=== PATIENT | female | born 1985 | race Caucasian/White ===

== ENCOUNTER → 2021-05-13 13:58 | Outpatient (CLI) | payer OTHER, SELFPAY ==
[2021-05-13 15:52] LABS: Hematocrit 34.3 % (36-46); Hemoglobin 11.9 g/dL (12.0-16.0)
[2021-05-13 16:51] LABS: GTT (PREG) 1 Hour PP 50gm Dose 134 mg/dL (76-139)
== END ==
PROVIDERS: Referring Provider Obstetrics & Gynecology; Visit Provider Obstetrics & Gynecology
DX: Z34.90 Encounter for supervision of normal pregnancy, unspecified, unspecified trimester
CPT/HCPCS: 36415; 82950; 85014; 85018

== ENCOUNTER 2021-05-27 11:26 | Outpatient (CLI) | payer OTHER, SELFPAY ==
--- NOTE | 2021-05-27 12:26 | PM.OBTRLD ---
Visit Information Visit Information Date of evaluation: 06/24/21 Primary OB Provider: Angeli Miranda Reason for Evaluation: Yes non-stress test Comments/Additional reasons for admission: This patient is a 35yo P1 @34+0 with an uncomplicated , sent for NST after FHR in the 190s in clinic in the setting of copious movement. Patient had no other symptoms or concerns at clinic visit, otherwise doing well. Vital Signs Vital Signs: 119/73, afebrile, HR 93 PFSH Medical History Preeclampsia (~2019) Ruptured ovarian cyst (~2006) Surgical History [place] teeth extracted Family History Mother No problems noted. Father Hypertension Stroke Hyperlipidemia Grandmother Ovarian cancer Grandfather Prostate cancer Grandmother Family history unknown Grandfather Family history unknown Social History marital status: number of children: 1 household members: spouse, family (Living with parents while looking for a house. ) and children lives independently: No caregiver/support person: No pets and animals: Yes (2 dogs: safe.) education level: master's degree (Cultural Resources/ Environmental Resources) occupational status: employed (Works from home.) current occupational exposures/hazards: No patti/adventism: Yazidi special patti needs: No seatbelt use: always do you feel safe at home: Yes Smoking Status: Never smoker second hand exposure: No alcohol intake: former substance use type: does not use during the past year weight has: remained stable well-balanced diet: daily or most days daily servings fruits/ve or more times/day caffeine: Yes (1 cup black tea daily.) Type(s) of exercise: walking frequency: daily Evaluation Evaluation Baseline heart rate: 140 Variability: Moderate (11-25) monitor accelerations: Present Monitor Decelerations: Absent Category of Tracing: Reactive Status: Category l Diagnosis, Plan/Disposition Plan/Disposition Plan: Home with routine precautions. OB Disposition: home
== END 2021-05-27 12:32 | disposition home or self-care (01) ==
LOC: OB 05-28 14:00
PROVIDERS: Referring Provider Obstetrics & Gynecology; Visit Provider Obstetrics & Gynecology
DX: Z34.83 Encounter for supervision of other normal pregnancy, third trimester (principal); Z3A.34 34 weeks gestation of pregnancy
CPT/HCPCS: 59025; G0378; G0379

== ENCOUNTER 2021-07-10 12:44 | Outpatient (CLI) | payer OTHER, SELFPAY ==
--- NOTE | 2021-07-10 13:35 | PM.OBTRLD ---
Visit Information Visit Information Date of evaluation: 07/10/21 Primary OB Provider: Angeli Miranda Reason for Evaluation: Yes non-stress test Comments/Additional reasons for admission: This patient is a 35yo @40+2 presenting for NST for postdates. Vital Signs Vital Signs: 126/75 PFSH Medical History Preeclampsia (~2020) Ruptured ovarian cyst (~2006) Surgical History [place] teeth extracted Family History Mother No problems noted. Father Hypertension Stroke Hyperlipidemia Grandmother Ovarian cancer Grandfather Prostate cancer Grandmother Family history unknown Grandfather Family history unknown Social History marital status: number of children: 1 household members: spouse, family (Living with parents while looking for a house. ) and children lives independently: No caregiver/support person: No pets and animals: Yes (2 dogs: safe.) education level: master's degree (Cultural Resources/ Environmental Resources) occupational status: employed (Works from home.) current occupational exposures/hazards: No patti/samaritan: Taoist special patti needs: No seatbelt use: always do you feel safe at home: Yes Smoking Status: Never smoker second hand exposure: No alcohol intake: former substance use type: does not use during the past year weight has: remained stable well-balanced diet: daily or most days daily servings fruits/ve or more times/day caffeine: Yes (1 cup black tea daily.) Type(s) of exercise: walking frequency: daily Evaluation Evaluation Baseline heart rate: 135 Variability: Average (6-10) monitor accelerations: Present Monitor Decelerations: Absent Contraction Frequency (minutes): 10 Category of Tracing: Reactive Status: Category l Diagnosis, Plan/Disposition Plan/Disposition Plan: Home with routine precautions. OB Disposition: home
== END 2021-07-10 13:30 | disposition home or self-care (01) ==
LOC: LABOR 12:59 → OB 07-11 15:42
PROVIDERS: PCP Obstetrics & Gynecology; Referring Provider Obstetrics & Gynecology; Visit Provider Obstetrics & Gynecology
DX: O48.0 Post-term pregnancy (principal); Z3A.40 40 weeks gestation of pregnancy
CPT/HCPCS: 59025; G0378; G0379

== ENCOUNTER 2021-07-15 09:09 | Outpatient (CLI) | payer OTHER, SELFPAY ==
--- NOTE | 2021-07-15 17:58 | P.TNLD_ITS ---
Visit Information Visit Information Date of evaluation: 07/15/21 Primary OB Provider: Angeli Miranda Reason for Evaluation: Yes non-stress test Comments/Additional reasons for admission: Patient presents at 41+0 for postdates NST. Vital Signs Vital Signs: 130/70, HR 98 PFSH Medical History Preeclampsia (~2019) Ruptured ovarian cyst (~2006) Surgical History [place] teeth extracted Family History Mother No problems noted. Father Hypertension Stroke Hyperlipidemia Grandmother Ovarian cancer Grandfather Prostate cancer Grandmother Family history unknown Grandfather Family history unknown Social History marital status: number of children: 1 household members: spouse, family (Living with parents while looking for a house. ) and children lives independently: No caregiver/support person: No pets and animals: Yes (2 dogs: safe.) education level: master's degree (Cultural Resources/ Environmental Resources) occupational status: employed (Works from home.) current occupational exposures/hazards: No patti/religious: Gnosticism special patti needs: No seatbelt use: always do you feel safe at home: Yes Smoking Status: Never smoker second hand exposure: No alcohol intake: former substance use type: does not use during the past year weight has: remained stable well-balanced diet: daily or most days daily servings fruits/ve or more times/day caffeine: Yes (1 cup black tea daily.) Type(s) of exercise: walking frequency: daily Evaluation Evaluation Baseline heart rate: 135 Variability: Moderate (11-25) monitor accelerations: Present Monitor Decelerations: Absent Category of Tracing: Reactive Status: Category l Diagnosis, Plan/Disposition Plan/Disposition Plan: home with labor precautions OB Disposition: home
== END 2021-07-15 09:55 | disposition home or self-care (01) ==
LOC: OB 07-17 07:47
PROVIDERS: Referring Provider Obstetrics & Gynecology; Visit Provider Obstetrics & Gynecology
DX: O48.0 Post-term pregnancy (principal); Z3A.41 41 weeks gestation of pregnancy
CPT/HCPCS: 59025; G0378; G0379

== ENCOUNTER 2021-07-16 07:23 | Inpatient (IN) | payer OTHER, SELFPAY ==
--- NOTE | 2021-07-16 07:55 | PM.OBHP.1 ---
OB HPI Date/Time Date of admission: 07/16/21 Date Patient Seen: 07/16/21 Time Patient Seen: 07:55 History of Present Condition Chief complaint: : 3 Para: 1 Estimated Date of Delivery: 07/08/21 Estimated Gestational Age (weeks): 41+1 Narrative: Irma Pappas is a 35 year old CLOTILDE 07/08/2021 admitted in advanced active phase labor ai 41=1 weeks EGA. Hx of PEC w/ first delivery with prolonged second stage, vacuum extraction and episiotomy. BP's stable w/ this and now in labor. GBS is +. BOWI. History of Present care: good care Dating criteria: LMP confirmed by 2nd trimester US Ultrasounds: normal 1st trimester US and normal mid trimester US Obstetrical complications: none Medical complications: none Preadmission Labs Blood type: A (+) positive -: Antibody screen: negative, GBS status: positive, HBsAG: negative, HIV: negative and RPR/VDLR: negative -: Chlamydia screen: not detected and Gonorrhea screen: not detected -: Rubella: immune and Varicella: immune HCT: 34.3 HCAB: negative PAP: Normal 1 hr GTT: 136 Prior (ies) History: See HPI Evaluation Evaluation Baseline heart rate: 150 Variability: Moderate (11-25) monitor accelerations: Present Monitor Decelerations: Absent Contraction Frequency (minutes): 5 Uterine Contraction Intensity: Moderate Category of Tracing: Reactive Status: Category l Dilation (cm): 10 Effacement (%): 100 Dilation: >/=5 cm Effacement: >/=80% station: +2 Position of cervix: anterior Consistency: soft Antoine score: 13 PFSH Medical History Preeclampsia (~2020) Ruptured ovarian cyst (~2006) Surgical History [place] teeth extracted Family History Mother No problems noted. Father Hypertension Stroke Hyperlipidemia Grandmother Ovarian cancer Grandfather Prostate cancer Grandmother Family history unknown Grandfather Family history unknown Social History marital status: number of children: 1 household members: spouse, family (Living with parents while looking for a house. ) and children lives independently: No caregiver/support person: No pets and animals: Yes (2 dogs: safe.) education level: master's degree (Cultural Resources/ Environmental Resources) occupational status: employed (Works from home.) current occupational exposures/hazards: No ptati/methodist: Orthodox special patti needs: No seatbelt use: always do you feel safe at home: Yes Smoking Status: Never smoker second hand exposure: No alcohol intake: former substance use type: does not use during the past year weight has: remained stable well-balanced diet: daily or most days daily servings fruits/ve or more times/day caffeine: Yes (1 cup black tea daily.) Type(s) of exercise: walking frequency: daily Meds Home Medications and Allergies Home Medications Medication Instructions Recorded Confirmed Type aspirin 81 mg capsule 81 mg PO DAILY 04/04/21 07/15/21 History calcium carbonate 500 mg-vitamin 1 tab PO DAILY 04/04/21 07/15/21 History D3 10 mcg (400 unit) tablet (Calcium 500 + D) omega 1-chk-wrg-fish oil 1,600 5 ml PO DAILY 04/04/21 07/15/21 History mg-500 mg-800 mg/5 mL oral liquid (Fish Oil) prenat.vits,melissa,juv-aycr-klawi 1 tab PO DAILY 04/04/21 07/15/21 History Allergies Allergy/AdvReac Type Severity Reaction Status Date / Time No Known Drug Allergies Allergy Verified 07/15/21 08:50 OB Exam [facility] Head: normal to inspection, normocephalic and atraumatic Eyes General: appearance normal, both eyes and all related structures Resp Effort & Inspection: normal respiratory effort and able to speak in complete sentences Cardio Rhythm: regular rhythm Heart Sounds: S1 normal, S2 normal and no murmurs GI Inspection: normal to inspection Palpation: Yes soft, Yes no hepatosplenomegaly and Yes mass (Gravid) External Female Exam: Yes normal external appearance Uterus Location (Fundal Height): 39 Presentation: vertex Estimated Weight (lbs): 9 Amniotic Fluid: meconium (Very light) Objective Labs Result Diagrams: 07/16/21 07:50 Assessment and Plan Assessment and Plan Assessment and Plan narrative: ASSESSMENT 1. Intrauterine gestation, [place], 40 1+1 weeks gestational age 2. GBS positive PLAN 1. Admit for delivery 2. IV antibiotic prophylaxis for GBS positive status 3. Anticipate Time Spent with Patient Total time spent with greater than 50% in coordination of care (as documented) at patient's floor/unit and/or counseling patient:: 15-24 minutes
[2021-07-16] MEDS: PENICILLIN G POTASSIUM 5,000,000 UNIT in DEXTROSE 5% IN WATER 250 ML IV (08:02)
[2021-07-16] MEDS: LACTATED RINGERS 1,000 ML 100 ML IV (08:02)
[2021-07-16 08:11] LABS: Add Manual Diff / Slide Review NO; Basophils Absolute Auto 0 /uL (0-100); Basophils Percent Auto 0.3 % (0-2); Eosinophils Absolute Auto 100 /uL (0-450); Eosinophils Percent Auto 1.2 % (2-4); Hemoglobin 13.8 g/dL (12.0-16.0); Lymphocytes Absolute Auto 2100 /uL (1100-4500); Lymphocytes Percent Auto 23.5 % (25-40); Mean Corpuscular HGB Conc 34.6 % (30-36); Mean Corpuscular Hemoglobin 30.3 PG (26-34); Mean Corpuscular Volume 87.4 fL (80-100); Monocytes Absolute Auto 800 /uL (0-900); Monocytes Percent Auto 8.6 % (3-14); Neutrophils Absolute Auto 5800 /uL (1500-7000); Neutrophils Percent Auto 66.4 % (50-75); Platelet Count 128 X10^3/uL (150-400); Red Blood Cell Count 4.57 X10^6/uL (4.0-5.2); Red Cell Distribution Width 13.3 % (11.6-14.8); White Blood Cell Count 8.8 X10^3/uL (4.5-11.0)
[2021-07-16 08:25] LABS: COVID19 -Nasal RAPID Negative (Negative)
--- NOTE | 2021-07-16 09:00 | P.HPOB_ITS ---
OB HPI History of Present Condition Chief complaint: Narrative: Irma Pappas is a 35 year old female [facility] Medical History Preeclampsia (~2019) Ruptured ovarian cyst (~2006) Surgical History [place] teeth extracted Family History Mother No problems noted. Father Hypertension Stroke Hyperlipidemia Grandmother Ovarian cancer Grandfather Prostate cancer Grandmother Family history unknown Grandfather Family history unknown Social History marital status: number of children: 1 household members: spouse, family (Living with parents while looking for a house. ) and children lives independently: No caregiver/support person: No pets and animals: Yes (2 dogs: safe.) education level: master's degree (Cultural Resources/ Environmental Resources) occupational status: employed (Works from home.) current occupational exposures/hazards: No patti/rastafari: Zoroastrian special patti needs: No seatbelt use: always do you feel safe at home: Yes Smoking Status: Never smoker second hand exposure: No alcohol intake: former substance use type: does not use during the past year weight has: remained stable well-balanced diet: daily or most days daily servings fruits/ve or more times/day caffeine: Yes (1 cup black tea daily.) Type(s) of exercise: walking frequency: daily Meds Home Medications and Allergies Home Medications Medication Instructions Recorded Confirmed Type aspirin 81 mg capsule 81 mg PO DAILY 04/04/21 07/15/21 History calcium carbonate 500 mg-vitamin 1 tab PO DAILY 04/04/21 07/15/21 History D3 10 mcg (400 unit) tablet (Calcium 500 + D) omega 1-yqb-imp-fish oil 1,600 5 ml PO DAILY 04/04/21 07/15/21 History mg-500 mg-800 mg/5 mL oral liquid (Fish Oil) prenat.vits,melissa,zwn-gpvb-pcwss 1 tab PO DAILY 04/04/21 07/15/21 History Allergies Allergy/AdvReac Type Severity Reaction Status Date / Time No Known Drug Allergies Allergy Verified 07/15/21 08:50 Objective Labs Result Diagrams: 07/16/21 07:50 Labs: Laboratory Results - last 24 hr 07/16/21 07/16/21 07:50 07:50 WBC 8.8 RBC 4.57 Hgb 13.8 Hct 40.0 MCV 87.4 MCH 30.3 MCHC 34.6 RDW 13.3 Plt Count 128 L Neut % (Auto) 66.4 Lymph % (Auto) 23.5 L Porter % (Auto) 8.6 Eos % (Auto) 1.2 L Baso % (Auto) 0.3 Neut # (Auto) 5800 Lymph # (Auto) 2100 Porter # (Auto) 800 Eos # (Auto) 100 Baso # (Auto) 0 SARS-CoV-2 (PCR) Negative
--- NOTE | 2021-07-16 09:56 | P.PCNOB_ITS ---
Events: Other (GBS+) Labor & Delivery Delivery date: 07/16/21 Intrapartal Events: None Cervical ripening method: none Induction method: none Delivery monitor: external FHT and external uterine Route of delivery: Episiotomy description: None L&D Laceration Description: Perineal - 2nd Degree Delivery repair: chromic Estimated blood loss (mL): 350 Anesthesia Type: Local (1% Lidocaine 25cc total volume) Complications: None Narrative: Patient presented completely dilated and in order to be able to administer IV antibiotic prophylaxis for her positive GBS status, she was permitted to labor down which she did with excellent control. Spontaneous rupture of membranes occurred revealing very thin meconium staining at which time her IV penicillin had already infused. Contractions increased in frequency and intensity moving the vertex down to the perineum and with 4-5 pushes, she delivered spontaneously over an intact perineum a viable female Apgars of 9 and 9 with a weight of 9 lb 11.9 oz in the left occiput anterior position. No cord entanglement was noted and there was no difficulty delivering the shoulders. Skin to skin contact was initiated immediately and delayed cord clamping for greater than 90 seconds performed. The umbilical cord was then doubly clamped and cut and a cord blood sample obtained for routine studies. The placenta was delivered with gentle cord traction and upon inspection there was a small (5 cm) succenturiate lobe noted. The umbilical cord itself contained 3 vessels and its insertion was central. The patient did experience a second- degree perineal laceration which was repaired under local anesthetic in usual fashion using 2-0 chromic catgut suture. The delivery and the repair well t olerated with an estimated blood loss of approximately 350 cc. Mother and are both doing well at the completion of the delivery process. Baby 1: gender: Female Presentation: vertex Position: Left Occiput Anterior Placenta delivery description: Spontaneous and Abnormal Configuration (5 cm succenturiate lobe) Cord Vessel Description: 3 Vessels score (1 min): 9 score (5 min): 9 weight: 9 lb 11.9 oz Plan for aftercare: Routine care
[2021-07-16] MEDS: ACETAMINOPHEN 325 MG TABLET 650 MG PO ×2 (10:52→20:35)
[2021-07-16] MEDS: IBUPROFEN 600 MG TABLET PO ×2 (10:52→20:35)
[2021-07-16] MEDS: DOCUSATE 100 MG CAPSULE PO (20:54)
[2021-07-17 06:52] LABS: Hematocrit 38.3 % (36-46); Hemoglobin 12.9 g/dL (12.0-16.0)
[2021-07-17] MEDS: DOCUSATE 100 MG CAPSULE PO (09:11)
--- NOTE | 2021-07-17 10:15 | P.DS_ITS ---
Discharge Providers Provider Date of admission: 07/16/21 07:23 Discharge Date: 07/17/21 Consults: 07/17/21 09:59 Consult to Quality Improvement Manager Routine Comment: Discharge provider: Angeli Miranda MD Summary Time Spent with Patient Time attestation: Total time spent providing and/or coordinating discharge services: Objective Labs Result Diagrams: 07/17/21 05:59 Labs: Laboratory Results - last 24 hr 07/17/21 05:59 Hgb 12.9 Hct 38.3 Exam Vital Signs (past 8 hours): 122/71, pulse 89 Narrative Exam Narrative: Patient reports feeling well, denies incision pain, mild lochia, ambulation, tolerating PO, voiding, passing flatus. No PIH symptoms. Const General: cooperative, healthy appearing, comfortable and acute distress Resp Effort & Inspection: normal respiratory effort Auscultation: clear to auscultation bilaterally Cardio Rate: regular rate Rhythm: regular rhythm GI Palpation: soft and No tender Other: fundus firm, well below u Discharge Plan Discharge Plan Patient Disposition: Home Discharge orders & Medications Prescriptions: Continued aspirin 81 mg capsule 81 mg PO DAILY 0RF prenat.vits,melissa,nli-vynx-kyaej Tablet 1 tab PO DAILY 0RF calcium carbonate-vitamin D3 [Calcium 500 + D] 500 mg(1,250mg) -400 unit tablet 1 tab PO DAILY 0RF Fish Oil 1,600-500-800 mg/5 mL liquid 5 ml PO DAILY 0RF Follow up/Referrals: Angeli Miranda MD [Physician] - 6 Weeks ( check) Diet/Activity/Treatments Diet: Regular Activity: Nothing in the vagina for 6 weeks. Avoid lifting more than 10 pounds for 6 weeks. If you have increasing bleeding, fevers, chills, nausea, vomiting, headaches, visual changes, or any other symptoms or concerns, call or come to [facility] emergency room. Skin/Wound/Dressing Care Report to your healthcare provider any signs of infection, such as:: chills, fever, night sweats, increased pain, unusual drainage and unusual redness Visit Report/Discharge Packet Instructions: DI for Labor and Delivery, Vaginal
[2021-07-17 13:42] VITALS: BP 120/84; PULSE 72; RESP 18; TEMP 36.9
== END 2021-07-17 14:19 | disposition home or self-care (01) | DRG 807 ==
PROVIDERS: Obstetrics & Gynecology; Admitting Provider Obstetrics & Gynecology; Referring Provider Obstetrics & Gynecology; Visit Provider Obstetrics & Gynecology
DX: O48.0 Post-term pregnancy (principal); Z37.0 Single live birth; Z3A.41 41 weeks gestation of pregnancy; O99.824 Streptococcus B carrier state complicating childbirth; O70.1 Second degree perineal laceration during delivery; O77.0 Labor and delivery complicated by meconium in amniotic fluid; Z20.822 Contact with and (suspected) exposure to COVID-19
CPT/HCPCS: 36415; 59050; 59410; 85014; 85018; 85025; 86850; 86900; 86901; 87635; C9803; G0379; J2540

== ENCOUNTER → 2022-01-26 08:15 | Outpatient (CLI) | payer OTHER, SELFPAY ==
--- NOTE | 2022-01-26 08:16 | DI.US.S_ITS ---
PROCEDURE: US OB <= 14 WEEKS FETUS INDICATIONS: DATES OUTSIDE/PRIOR DATING DATA: Last menstrual period (LMP): 11/20/2021. LMP-based estimated date of delivery (CLOTILDE): 08/27/2022. First dating scan (date and location): 01/26/2022. Estimated date of delivery (CLOTILDE) from first dating scan: 09/02/2022. TECHNIQUE: Real-time scanning was performed of the fetus and maternal pelvic organs, with image documentation. Endovaginal scanning was also performed to better visualize the fetus and maternal ovaries. COMPARISON: None. FINDINGS: Embryo: [place]-rump length of 2.1 centimeters corresponding to a gestational age of 8 weeks 5 days Heart rate: 175 beats per minute Maternal organs: Ovaries are unremarkable in appearance. Right-sided corpus luteum. IMPRESSION: Single living intrauterine . Gestational age by crown rump length of 8 weeks 5 days. We strive to produce accurate, complete, and clear reports of imaging services. To assist us in improving patient care, this report was composed using standard report templates and voice recognition software. Therefore, it may contain abnormal punctuation, insertions and/or omissions. Occasional wrong-word or sound-alike substitutions may occur. Though we review the report and make efforts to correct it, we do recommend that the report be read carefully in proper context to recognize any text inaccuracies. Dictated by: Taras Moreira M.D. on 01/26/2022 at 9:31 Approved by: Taras Moreira M.D. on 01/26/2022 at 9:35
== END ==
PROVIDERS: Referring Provider Obstetrics & Gynecology; Visit Provider Obstetrics & Gynecology
DX: Z34.81 Encounter for supervision of other normal pregnancy, first trimester (principal); Z3A.08 8 weeks gestation of pregnancy
CPT/HCPCS: 76801; 76817

== ENCOUNTER → 2022-02-05 15:55 | Outpatient (CLI) | payer OTHER, SELFPAY ==
[2022-02-05 16:42] LABS: Add Manual Diff / Slide Review NO; Basophils Absolute Auto 0 /uL (0-100); Basophils Percent Auto 0.5 % (0-2); Eosinophils Absolute Auto 100 /uL (0-450); Hematocrit 37.9 % (36-46); Hemoglobin 13.1 g/dL (12.0-16.0); Lymphocytes Absolute Auto 2200 /uL (1100-4500); Mean Corpuscular HGB Conc 34.7 % (30-36); Mean Corpuscular Hemoglobin 30.3 PG (26-34); Mean Corpuscular Volume 87.5 fL (80-100); Monocytes Absolute Auto 500 /uL (0-900); Monocytes Percent Auto 8.8 % (3-14); Neutrophils Absolute Auto 3300 /uL (1500-7000); Neutrophils Percent Auto 53.7 % (50-75); Platelet Count 140 X10^3/uL (150-400); Red Blood Cell Count 4.32 X10^6/uL (4.0-5.2); Red Cell Distribution Width 13.2 % (11.6-14.8); White Blood Cell Count 6.1 X10^3/uL (4.5-11.0)
[2022-02-05 17:55] LABS: Hepatitis B Surface Antigen NEGATIVE s/c (NEGATIVE); Rubella Antibody IgG 83.1 IU/mL (>15)
[2022-02-05 18:12] LABS: HIV 1 & 2 Ab/Ag 4th Gen Combo NEGATIVE (NEGATIVE); Hep C Virus Ab w/Reflex Quant NEGATIVE s/c (NEGATIVE)
[2022-02-07 06:56] LABS: RPR Screen Non Reactive (Non Reactive)
[2022-02-07 09:36] LABS: Varicella IgG Antibody 2167 index (Immune >165)
== END ==
PROVIDERS: Referring Provider Obstetrics & Gynecology; Visit Provider Obstetrics & Gynecology
DX: Z34.81 Encounter for supervision of other normal pregnancy, first trimester (principal)
CPT/HCPCS: 36415; 80055; 86787; 86803; 86850; 86900; 86901; 87389

== ENCOUNTER → 2022-04-01 09:05 | Outpatient (CLI) | payer OTHER, SELFPAY | PROVIDERS: Visit Provider Obstetrics & Gynecology | DX: Z34.82 Encounter for supervision of other normal pregnancy, second trimester (principal) | CPT/HCPCS: 87077; 87086; 87147 ==

== ENCOUNTER → 2022-04-09 06:47 | Outpatient (CLI) | payer OTHER, SELFPAY ==
--- NOTE | 2022-04-09 06:48 | DI.US.S_ITS ---
PROCEDURE: US OB >= 14 WEEKS FETUS INDICATIONS: 20 week anatomy scan OUTSIDE/PRIOR DATING DATA: Last menstrual period (LMP): 11/20/2021. LMP-based estimated date of delivery (CLOTILDE): 08/27/2022. First dating scan (date and location): 01/26/2022. Estimated date of delivery (CLOTILDE) from first dating scan: 08/30/2022. The calculations are made using the working CLOTILDE of 08/27/2022. TECHNIQUE: Real-time scanning was performed of the fetus, with image documentation and biometric measurements. Endovaginal scanning: Not performed COMPARISON: [facility], , OB >= 14 WEEKS FETUS, 07/10/2021, 12:41. [facility], , US OB <= 14 WEEKS FETUS, 01/26/2022, 8:32. FINDINGS: General: A single living intrauterine gestation is present. Presentation: Variable. Placenta: Placental position is anterior , without previa. Amniotic fluid index: 15.9 cm, normal range is 5-24 cm. Single deepest vertical pocket is 5.2 cm. heart rate: 145 beats per minute. Maternal cervical canal: 0.2 cm long. Normal lower limit is 2.5 cm. biometrics: Biparietal diameter: 19 weeks 3 days Head circumference: 19 weeks 2 days Abdominal circumference: 20 weeks 1 day Femur length: 19 weeks 2 days Clinically estimated gestational age: 20 weeks 0 day Composite gestational age from present scan: 19 weeks 4 days Estimated weight and percentile: 305 g; 27% Anatomic survey: Neuro: Ventricles are non-dilated at less than 10 mm. Cisterna magna is normal at 3-11 mm. Cerebellum is normal in size and morphology. Nuchal skin fold: Normal at less than 6 mm between 14-21 weeks gestational age. Face: Nose and lips, facial profile are normal. Spine: Lumbar sacral spine not well seen due to lie. Heart: 4-chambered heart is present, with normal ventricular outflow tracts. There is a echogenic focus in left ventricle. Diaphragm: Diaphragm is intact. Stomach: Left-sided stomach is present. Kidneys: No hydronephrosis. Normal is less than 5 mm in 2nd trimester, less than 7 mm in 3rd trimester. Cord: 3-vessel cord has orthotopic insertion. Bladder: Normal in size. Extremities: All 4 extremities identified. IMPRESSION: 1. A single living intrauterine gestation with appropriate interval growth. 2. There is an intracardiac echogenic focus in the left ventricle. As an isolated finding, this is of no significant clinical significance. Please correlate with other screening tests. 3. The lumbar sacral spine is not well seen. Recommend follow-up imaging. 4. No anomaly is identified on anatomic survey. We strive to produce accurate, complete, and clear reports of imaging services. To assist us in improving patient care, this report was composed using standard report templates and voice recognition software. Therefore, it may contain abnormal punctuation, insertions and/or omissions. Occasional wrong-word or sound-alike substitutions may occur. Though we review the report and make efforts to correct it, we do recommend that the report be read carefully in proper context to recognize any text inaccuracies. Dictated by: Yohan Carrion M.D. on 04/09/2022 at 16:13 Approved by: Yohan Carrion M.D. on 04/09/2022 at 16:19
== END ==
PROVIDERS: Referring Provider Obstetrics & Gynecology; Visit Provider Obstetrics & Gynecology
DX: Z34.82 Encounter for supervision of other normal pregnancy, second trimester (principal); Z3A.19 19 weeks gestation of pregnancy
CPT/HCPCS: 76811

== ENCOUNTER → 2022-04-10 10:37 | Outpatient (CLI) | payer OTHER, SELFPAY ==
[2022-04-10 10:56] LABS: Specimen Label NATERA
[2022-04-10 12:07] LABS: Appearance Urine UA CLEAR; Bilirubin Urine UA NEGATIVE (NEGATIVE); Color Urine UA YELLOW; Glucose Urine UA NEGATIVE (Negative); Ketones Urine UA NEGATIVE (NEGATIVE); Leukocyte Esterase Urine UA NEGATIVE (NEGATIVE); Nitrite Urine UA NEGATIVE (Negative); Occult Blood Urine UA NEGATIVE (Negative); Protein Urine UA NEGATIVE (Negative); Specific Gravity Urine UA 1.015 (1.000-1.035); Urobilinogen Urine UA 0.2 E.U./dL (0.2)
[2022-04-10 12:26] LABS: pH Urine UA 7.5 (4.5-8.0)
== END ==
PROVIDERS: Referring Provider Obstetrics & Gynecology; Visit Provider Obstetrics & Gynecology
DX: Z34.81 Encounter for supervision of other normal pregnancy, first trimester (principal)
CPT/HCPCS: 36415; 81003

== ENCOUNTER → 2022-04-29 09:05 | Outpatient (CLI) | payer OTHER, SELFPAY | PROVIDERS: Visit Provider Obstetrics & Gynecology | DX: Z34.82 Encounter for supervision of other normal pregnancy, second trimester (principal); Z3A.22 22 weeks gestation of pregnancy | CPT/HCPCS: 87086; 87147 ==

== ENCOUNTER → 2022-05-04 07:03 | Outpatient (CLI) | payer OTHER, SELFPAY ==
--- NOTE | 2022-05-04 07:04 | DI.US.S_ITS ---
PROCEDURE: US OB FOLLOW UP INDICATIONS: FOLLOW UP ANATOMY OUTSIDE/PRIOR DATING DATA: Last menstrual period (LMP): 11/20/2021 LMP-based estimated date of delivery (CLOTILDE): 08/27/2022 First dating scan (date and location): 01/26/2022 Estimated date of delivery (CLOTILDE) from first dating scan: 09/02/2022 The calculations are made using the working CLOTILDE of 08/27/2022 TECHNIQUE: Real-time scanning was performed of the fetus, with image documentation. Endovaginal scanning: Not performed COMPARISON: [facility], , US OB >= 14 WEEKS FETUS, 04/09/2022, 7:07. FINDINGS: General: A single living intrauterine gestation is present. Presentation: Vertex Placenta: Placental position is anterior, without previa. Amniotic fluid index: 14.9 cm, normal range is 5-24 cm. Single deepest vertical pocket is 5.5 cm. heart rate: 149 beats per minute. Maternal cervical canal: 3.8 cm long. Normal lower limit is 2.5 cm. Clinically estimated gestational age: 23 weeks 4 days Other: lumbosacral spine appears normal. Echogenic focus within the left ventricle is again seen. IMPRESSION: 1. Single live intrauterine . 2. Lumbosacral spine is within normal limits. 3. Isolated echogenic intracardiac focus is again seen. We strive to produce accurate, complete, and clear reports of imaging services. To assist us in improving patient care, this report was composed using standard report templates and voice recognition software. Therefore, it may contain abnormal punctuation, insertions and/or omissions. Occasional wrong-word or sound-alike substitutions may occur. Though we review the report and make efforts to correct it, we do recommend that the report be read carefully in proper context to recognize any text inaccuracies. Approved by: Taras Talamantes M.D. on 05/04/2022 at 9:05
== END ==
PROVIDERS: Referring Provider Obstetrics & Gynecology; Visit Provider Obstetrics & Gynecology
DX: Z3A.23 23 weeks gestation of pregnancy; Z36.2 Encounter for other antenatal screening follow-up
CPT/HCPCS: 76816

== ENCOUNTER 2022-08-31 18:11 | Inpatient (IN) | payer OTHER, SELFPAY ==
--- NOTE | 2022-08-31 18:18 | P.HPOB_ITS ---
OB HPI Date/Time Date of admission: 08/31/22 Date Patient Seen: 08/31/22 Time Patient Seen: 18:18 History of Present Condition Chief complaint: Narrative: Irma Pappas is a 36 year old female at 40w4d by sure LMP concordant with 8 week US. Being admitted in spontaneous active labor for expe cted NSVB of SIUP. Uncomplicated care, initially with Dr. Nicolas then Dr. Hernandez, transferred care to [facility] at 26weeks 4days. GBS positive. Called this afternoon with contractions becoming longer, stronger, and closer together. Decided to come to the hospital with 3,1,1 pattern. No leaking of fluid, some bloody show. Coping well, breathing through contractions. Here with supportive at bedside. Desires a low intervention unmedicated labor and . Indications Other reason(s) for admission: Management of spontaneous labor, GBS positive. History of Present care: good care, initiated at week # (8weeks with OBGYNs, 26weeks with CNMs), number of visits (11 total ) and pounds weight gain (25) Dating criteria: LMP confirmed by 1st trimester US Ultrasounds: normal 1st trimester US and normal mid trimester US Preadmission Labs Blood type: A (+) positive -: Antibody screen: negative, GBS status: positive, HBsAG: negative, HIV: negative and RPR/VDLR: negative -: Rubella: immune and Varicella: immune HCT: 36.7 PAP: Normal Urine: GBS Positive 1 hr GTT: 107 Prior (ies) History: NSVB x2, history of forceps delivery and PreE with first . Precipitous labor with second . Evaluation Evaluation Baseline heart rate: 138 Dilation (cm): 7 Effacement (%): 80 Dilation: >/=5 cm Effacement: >/=80% station: -1 Position of cervix: anterior Consistency: soft Antoine score: 12 Comments: FHR reassuring by intermitted auscultation [facility] Medical History Preeclampsia (~2019) Ruptured ovarian cyst (~2006) Surgical History [place] teeth extracted Family History Mother No problems noted. Father Hypertension Stroke Hyperlipidemia Grandmother Ovarian cancer Grandfather Prostate cancer Grandmother Family history unknown Grandfather Family history unknown Social History marital status: number of children: 2 household members: spouse and children lives independently: Yes caregiver/support person: Yes pets and animals: Yes (2 dogs: safe.) education level: master's degree (Cultural Resources/ Environmental Resources) occupational status: employed (Works from home.) current occupational exposures/hazards: No patti/restoration: Faith special patti needs: No travel history: recent (local only) seatbelt use: always water heater temp set < 120 deg: Yes working smoke detector in home: Yes fire extinguisher in home: Yes carbon monox detector in home: Yes firearms in home: No do you feel safe at home: Yes Smoking Status: Never smoker second hand exposure: No alcohol intake: former (very rarely, only when not ) substance use type: does not use during the past year weight has: other (Has not gone a full year between her children) well-balanced diet: daily or most days daily servings fruits/ve or more times/day caffeine: Yes (1 cup coffee) Type(s) of exercise: walking frequency: daily Meds Home Medications and Allergies Home Medications Medication Instructions Recorded Confirmed Type calcium carbonate 500 mg-vitamin 1 tab PO DAILY 04/04/21 04/29/22 History D3 10 mcg (400 unit) tablet (Calcium 500 + D) omega 4-yrd-rjw-fish oil 1,600 5 ml PO DAILY 04/04/21 04/29/22 History mg-500 mg-800 mg/5 mL oral liquid (Fish Oil) prenat.vits,melissa,ssb-rouh-nhryn 1 tab PO DAILY 04/04/21 04/29/22 History amoxicillin 875 mg tablet 875 mg PO Q12H #10 tabs 04/03/22 Rx Allergies Allergy/AdvReac Type Severity Reaction Status Date / Time No Known Drug Allergies Allergy Verified 04/29/22 08:31 Review of Systems Review of Systems ROS: Yes All systems reviewed with the patient and are negative except as otherwise documented OB Exam Vital signs Blood Pressure: 131/86 Eyes General: appearance normal, both eyes and all related structures Resp Effort & Inspection: normal respiratory effort, able to speak in complete sentences and symmetric chest movement Extremities Lower extremity: Yes normal to inspection Presentation: vertex Estimated Weight (lbs): 8 Objective Labs 08/31/22 18:40 Assessment and Plan Assessment and Plan Assessment and Plan narrative: A: Term Multipara Active labor Idiopathic thrombocytopenia GBS Prophylaxis indicated [place] not indicated malpresentation- CARTER position, deflexed Reassuring FHR P: Admit, routine ordersorders GBS prophylaxis by protocol Comfort measures to support unmedicated labor & delivery Intermittent auscultation of FHR
[2022-08-31] MEDS: AMPICILLIN 2,000 MG in SODIUM CHLORIDE 0.9% 100 ML 200 MG IV (18:45)
[2022-08-31 18:55] LABS: Add Manual Diff / Slide Review NO; Basophils Absolute Auto 0 /uL (0-100); Basophils Percent Auto 0.4 % (0-2); Eosinophils Absolute Auto 100 /uL (0-450); Eosinophils Percent Auto 0.6 % (2-4); Hematocrit 39.1 % (36-46); Hemoglobin 13.5 g/dL (12.0-16.0); Lymphocytes Absolute Auto 1600 /uL (1100-4500); Lymphocytes Percent Auto 18.8 % (25-40); Mean Corpuscular HGB Conc 34.5 % (30-36); Mean Corpuscular Volume 87.2 fL (80-100); Monocytes Absolute Auto 800 /uL (0-900); Monocytes Percent Auto 8.8 % (3-14); Neutrophils Absolute Auto 6300 /uL (1500-7000); Neutrophils Percent Auto 71.4 % (50-75); Platelet Count 118 X10^3/uL (150-400); Red Blood Cell Count 4.48 X10^6/uL (4.0-5.2); Red Cell Distribution Width 13.6 % (11.6-14.8); White Blood Cell Count 8.8 X10^3/uL (4.5-11.0)
[2022-08-31 18:59] VITALS: BP 131/86
[2022-08-31 19:00] VITALS: BP 131/86
[2022-08-31] MEDS: LACTATED RINGERS 1,000 ML 100 ML IV (19:27)
--- NOTE | 2022-08-31 21:06 | P.PCNOB_ITS ---
Labor & Delivery Delivery date: 08/31/22 Intrapartal Events: None Cervical ripening method: none Induction method: none Delivery monitor: external FHT Route of delivery: Episiotomy description: None L&D Laceration Description: Perineal - 1st Degree Quantitative Blood Loss: 125 Anesthesia Type: Other (NO2) Narrative: Irma, 36yr old female, G3 now P3003 s/p NSVB at 40w4d by sure LMP and concordant with 8week US. Arrived in spontaneous labor, coping well through breathing, movement, and support from her partner. No leaking of fluid, some bloody show. FHR reassuring by intermittent auscultation. SVE: 7/80/-1. Contractions increased in intensity and frequency, coped well with TENS unit, po sition changes, and support from CNM, SNM, and partner. Some nausea and vomiting. Was presumed complete with spontaneous urge to push, SROM with copious clear fluid. [place] that she needed some help for coping, consented to NO2 for pain management. Pushed effectively on hands and knees with CUB, 26min second stage. Baby boy delivered CARTER, no nuchal cord, shoulders delivered without difficulty, APGARS 9/9. Handed to Irma through her legs once she was ready to receive him. Assisted to recumbent position. Cord clamped after cessation of pulsation and cut by FOB. Cord blood collected. Pitocin started per protocol. 3VC placenta delivered, Schultze, apparently intact. Fundus immedately firm, bleeding scant. Inspection of perineum found short, first degree perineal laceration, well approximated, hemostatic, no need for repair. QBL 125mL. Both mother and baby skin to skin and as we left the room. Both parents are very excited to meet their baby boy. [place] Baby 1: Infant gender: Male Presentation: vertex Position: Right Occiput Anterior Placenta delivery description: Spontaneous Cord Vessel Description: 3 Vessels score (1 min): 9 score (5 min): 9 weight: 4.017 kg Plan for aftercare: Routine care (Anticipate d/c to home in 18 hours)
[2022-08-31] MEDS: LANOLIN OINT 7 GM 1 APPLIC TOP (21:54)
[2022-08-31] MEDS: IBUPROFEN 600 MG TABLET PO (21:55)
[2022-08-31] MEDS: ACETAMINOPHEN 325 MG TABLET 650 MG PO (21:56)
[2022-08-31] MEDS: DERMOPLAST SPRAY 20% 60 ML 1 SPRAY TOP (21:56)
[2022-08-31] MEDS: METHYLERGONOVINE 0.2 MG TABLET PO (22:17)
[2022-09-01] MEDS: ACETAMINOPHEN 325 MG TABLET 650 MG PO ×3 (03:05→15:40)
[2022-09-01] MEDS: IBUPROFEN 600 MG TABLET PO ×3 (03:06→15:39)
--- NOTE | 2022-09-01 06:43 | P.DS_ITS ---
Discharge Providers Provider Date of admission: 08/31/22 18:11 Discharge Date: 09/01/22 Primary care physician: Doctor Dulce MD Consults: 09/01/22 20:58 Consult to Surveyor Mine Routine Comment: Discharge provider: Pearl Hernández CNM Summary Hospital Course Date Patient Seen: 09/01/22 Time Patient Seen: 06:43 Diagnoses: O70.0 Hospital Course: PPD1: Stable s/p NSVB with small 1st degree perineal laceration. Voiding, am bulating and independently. Tolerating a general diet. Minimal vaginal and perineal pain well controlled with PO medication. Vaginal bleeding is light, without clots. Partner is present and supportive and they are ready for discharge to home as soon as possible. Peripartum Data Infant Delivery Method: Natural Vaginal Laceration Description: Perineal - 1st Degree Episiotomy description: None Procedures: O70.0 complications: none 1: Gender: Male Disposition of : home Discharge Diagnosis (1) First degree perineal laceration during delivery: Status: Acute Status at Discharge Cognitive/behavioral status at discharge: oriented and calm Functional status at discharge: independent ambulation Overall status at discharge: patient is progressing back to baseline Time Spent with Patient Time attestation: Total time spent providing and/or coordinating discharge services: Objective Labs 08/31/22 18:40 Labs: Laboratory Results - last 24 hr 08/31/22 08/31/22 18:40 18:40 WBC 8.8 RBC 4.48 Hgb 13.5 Hct 39.1 MCV 87.2 MCH 30.0 MCHC 34.5 RDW 13.6 Plt Count 118 L Neut % (Auto) 71.4 Lymph % (Auto) 18.8 L [place] % (Auto) 8.8 Eos % (Auto) 0.6 L Baso % (Auto) 0.4 Neut # (Auto) 6300 Lymph # (Auto) 1600 [place] # (Auto) 800 Eos # (Auto) 100 Baso # (Auto) 0 Blood Type A Positive Antibody Screen Negative Exam Vital Signs (past 8 hours): BP 122/69mmHg, HR 88bpm, RR 16/min, T 98.2F Axillary Const General: healthy appearing and comfortable Other: Fundus firm @ U-1, lochia small, no clots. Perineum well approximated with minimal edema. Psych Appearance: grossly normal Mental Status: mental status grossly normal Speech and Movement: speech and movement normal Mood: congruent mood Affect: normal affect Discharge Plan Discharge Plan Patient Disposition: Home Discharge orders & Medications Prescriptions: New ibuprofen 600 mg Tablet 600 mg PO Q6HR PRN (Reason: Pain, Mild (1-3)) 14 Days Qty: 60 0RF Continued prenat.vits,melissa,[id number] Tablet 1 tab PO DAILY calcium carbonate-vitamin D3 [Calcium 500 + D] 500 mg(1,250mg) -400 unit tablet 1 tab PO DAILY Fish Oil 1,600-500-800 mg/5 mL liquid 5 ml PO DAILY Discontinued amoxicillin 875 mg tablet 875 mg PO Q12H Qty: 10 0RF Follow up/Referrals: Doctor Cardona MD [Primary Care Provider] - Pearl Hernández CNM [Advanced Social Media Assistant] - (Follow-up in 2 weeks and 6 weeks, as scheduled. Appointments in your email. ) Diet/Activity/Treatments Diet: Diet as Tolerated and Regular Activity: pelvic rest x 6 weeks Skin/Wound/Dressing Care Report to your healthcare provider any signs of infection, such as:: chills, fever, increased pain, unusual drainage and unusual redness Visit Report/Discharge Packet Instructions: DI for Depression Stand Alone Forms: Patient Portal/API, Stroke Signs & Symptoms Discharge Data Primary Care Provider: Doctor Dulce
[2022-09-01] MEDS: DOCUSATE 100 MG CAPSULE PO (08:49)
[2022-09-01 15:34] VITALS: BP 134/76; PULSE 62; RESP 15; TEMP 36.8
== END 2022-09-01 16:12 | disposition home or self-care (01) | DRG 806 ==
PROVIDERS: Admitting Provider Nurse Practitioner Obstetrics & Gynecology; Referring Provider Nurse Practitioner Obstetrics & Gynecology; Visit Provider Nurse Practitioner Obstetrics & Gynecology
DX: O99.824 Streptococcus B carrier state complicating childbirth (principal); D69.3 Immune thrombocytopenic purpura; Z37.0 Single live birth; O70.0 First degree perineal laceration during delivery; Z3A.40 40 weeks gestation of pregnancy; O99.12 Other diseases of the blood and blood-forming organs and certain disorders involving the immune mechanism complicating childbirth
CPT/HCPCS: 36415; 85025; 86850; 86900; 86901; G0379; J0290